=== PATIENT | female | born 1950 | race Caucasian/White ===

== ENCOUNTER 2024-09-28 19:38 | Outpatient (CLI) | payer OTHER, MEDICARE, SELFPAY | END 2024-09-28 19:39 | disposition home or self-care (01) | LOC: AMB 10-01 12:29 | PROVIDERS: Visit Provider Emergency Medicine | DX: S29.9XXA Unspecified injury of thorax, initial encounter (principal); V49.50XA Passenger injured in collision with unspecified motor vehicles in traffic accident, initial encounter; Y92.410 Unspecified street and highway as the place of occurrence of the external cause | CPT/HCPCS: A0425; A0427 ==